=== PATIENT | male | born 1970 | race Caucasian/White ===

== ENCOUNTER 2018-09-16 08:37 | Emergency (ER) | payer OTHER ==
[~2018-09-16] VITALS: Ht 175.3 cm; Wt 161.3 kg
[2018-09-16 09:10] LABS: ABSOLUTE BASOPHILS 0.1 thou/uL (0.0-0.2); ABSOLUTE EOSINOPHILS 0.2 thou/uL (0.0-0.7); ABSOLUTE LYMPHOCYTES 2.1 thou/uL (0.8-5.3); ABSOLUTE NEUTROPHILS 7.9 thou/uL (1.6-8.1); BASOPHILS 0.5 %; EOSINOPHILS 1.5 %; HEMATOCRIT 39.8 % (42.0-52.0); HEMOGLOBIN 13.1 gm/dL (14.0-18.0); LYMPHOCYTES 18.7 %; MCH 28.6 pg (26.0-34.0); MCV 86.7 fL (80.0-100.0); MONOCYTES 8.7 %; MPV 6.8 fl. (7.2-11.1); NUCLEATED RBCS 0 /100WBC; PLATELET COUNT* 317 thou/uL (150-400); POLYS 70.6 %; RBC 4.59 mil/uL (4.50-6.00); RDW-CV 14.7 % (10.5-14.5); WBC 11.2 thou/uL (4.0-11.0)
[2018-09-16 09:30] LABS: ANION GAP 7 mmol/L (7-16); BUN 20 mg/dL (7-18); CALCIUM 9.2 mg/dL (8.5-10.1); CHLORIDE 101 mmol/L (98-107); CO2 29 mmol/L (21-32); CREATININE 0.8 mg/dL (0.6-1.3); GLUCOSE 126 mg/dL (70-99); POTASSIUM 4.2 mmol/L (3.5-5.1); SODIUM 137 mmol/L (136-145)
[2018-09-16 09:41] LABS: ALBUMIN 3.4 g/dL (3.4-5.0); ALKALINE PHOSPHATASE 73 U/L (46-116); LIPASE 96 U/L (73-393); NT-PRO BRAIN NAT PEPTIDE 11 pg/mL (<300); SGOT 12 U/L (15-37); SGPT 35 U/L (30-65); TOTAL BILIRUBIN 0.5 mg/dL (<0.1-1.0); TROPONIN-I LEVEL <0.06 ng/mL (<0.06)
[2018-09-16 10:04] VITALS: BP 107/69
--- NOTE | 2018-09-16 18:34 | EKG ---
[place] [address] ELECTROCARDIOGRAM REPORT Name: MARY ANNE DOWNSOCH Salud IV Room: [facility]#: [id number] Admission: 09/16/18 Attend Phys: Discharge: 09/16/18 Date of : 68 Report #: [id number] THIS REPORT FOR: //name// [facility] ED Test Date: 2018-09-16 Test Time: 08:41:36 Pat Name: ROMEL DOWNS Department: Room: Gender: M [employer]: DIANA : 1970 Requested By: Aneesh Morris Order Number: [id number] MD: Rolando Reilly Measurements Intervals [place] Rate: 77 P: 48 DC: 187 QRS: 32 QRSD: 94 T: 21 QT: 363 QTc: 411 Interpretive Statements Sinus rhythm RSR' in V1 or V2, right VCD or RVH No previous ECG available for comparison Electronically Signed On 09-16-2018 18:34:31 CDT by Rolando Reilly [email or web address] <ELECTRONICALLY SIGNED> By: Rolando Reilly MD, [facility] 09/16/18 [id number] 0 Rolando Reilly MD, FACC /EPI
== END 2018-09-16 10:04 | disposition home or self-care (01) ==
LOC: M.ERS 08:37
PROVIDERS: Emergency Medicine
DX: R07.89 Other chest pain (principal); I48.91 Unspecified atrial fibrillation